=== PATIENT | male | born 1980 | race Caucasian/White ===

== ENCOUNTER 2017-06-19 08:11 | Inpatient (IN) | payer OTHER ==
[~2017-06-19] VITALS: Ht 180.3 cm; Wt 81.6 kg
--- NOTE | ~2017-06-19 | PA ---
Unit #: [id number] #: [id number] Patient: BABAK CALLAHAN [id number] [facility] [address] [place] [address] [id number] MR#: [id number] NAME: BABAK CALLAHAN ROOM: P184 Age: 37 Sex: M Admission Date: 06/19/2017 : 1980 Date of Assessment: 06/20/2017 Attending Physician: Ishaan Flood M.D. Admitting Physician: Ishaan Flood M.D. Primary Care Physician: Generic Doctor Not In System PSYCHIATRIC ASSESSMENT DATE OF SERVICE 06/20/2017. INFORMANTS The patient, reliable; OP, reliable; and [place] office, reliable. CHIEF COMPLAINT Alcoholism. HISTORY OF PRESENT ILLNESS Laden is a 37-year-old man, who reports he has been drinking since he was 19 years old. He has binge pattern drinking for 5 days in a row and reports he has been drinking for the last 3 weeks consistently. He has active withdrawal symptoms and says "this is the most scared I have been." He denied any suicidal ideation, intent, or plan, but was in a clearly decompensated state and was admitted for alcohol detox. PAST PSYCHIATRIC HISTORY The patient has previous attempts of treatment through the [facility] and the offices of [facility] Verduzco and Cruz[facility] Mack. He is not currently taking any psychiatric medications, although he has been prescribed Lexapro and Depakote in the past. FAMILY PSYCHIATRIC HISTORY He reports alcoholism on both sides of his family. His paternal grandfather attempted suicide. SOCIAL HISTORY The patient denies any history of abuse or neglect. The patient is a heterosexual man and an EPO was recently filed on him due to arguments with his spouse. He is now not allowed to return to his home. He is a college graduate with 9 hour short of a master's degree and has been unemployed since December of this year. He is currently living with his mother since his ejected them from their home. PAST MEDICAL HISTORY Significant for psoriasis. MEDICATIONS The patient uses Zyrtec p.r.n. for psoriasis itching. ALLERGIES Wellbutrin. Unit #: [id number] #: [id number] Patient: BABAK CALLAHAN SUBSTANCE ABUSE HISTORY As noted above. MENTAL STATUS EXAMINATION Desiree presented as a neatly dressed and groomed man, who appeared his stated age. He was cooperative with the examination. His speech was spontaneous and easily understood. His musculoskeletal examination was calm. His mood was anxious with a congruent affect. He was alert and fully oriented. His memory and concentration were intact. His thought processes were logical with no active psychosis. He denied suicidal ideation, intent, or plan. Insight and judgment, fair. Fund of knowledge and abstraction, fair. ASSETS AND LIABILITIES The patient knows local resources and presents voluntarily for treatment. He is employable and a college graduate. Liabilities include difficulty maintaining sobriety and recent loss of employment. ADMITTING DIAGNOSES AXIS I: Alcohol dependence with withdrawal, uncomplicated, F10.230. AXIS II: No diagnosis. AXIS III: History of psoriasis and history of asthma. AXIS IV: AXIS V: PSYCHIATRIC PLAN The patient was admitted and placed on the alcohol detox protocol. His home medications will be explored continued and a physical examination and laboratory studies will be ordered and reviewed. He will engage in dual diagnosis groups and activities. TREATMENT GOALS Resolution of intoxication, improvement in insight, and improvement in coping skills. DISCHARGE PLANNING Follow up with community health mental health. ESTIMATED LENGTH OF STAY 5 days. Dictated by... Ishaan Flood M.D. [facility]/millie TD: 06/21/2017 11:59 JOB #: [id number] Unit #: [id number] #: [id number] Patient: BABAK CALLAHAN PSYCHIATRIC ASSESSMENT Page 1 of 1 X Ishaan Flood MD X PSYCHIATRIC ASSESSMENT
--- NOTE | ~2017-06-19 | HP ---
Unit #: [id number] #: [id number] Patient: CORY CALLAHAN [id number] [place] [address] [id number] MR#: [id number] NAME: CORY CALLAHAN ROOM: P184 Age: 37 Sex: M Admission Date: 06/19/2017 : 1980 Attending Physician: Ishaan Flood M.D. Admitting Physician: Ishaan Flood M.D. Primary Care Physician: Mack Doctor Not In System HISTORY AND PHYSICAL HISTORY OF PRESENT ILLNESS Cory is a 37 year old male admitted to [facility] because of his abuse of alcohol. PAST MEDICAL HISTORY 1. Long history of alcohol abuse. 2. Psoriasis. PAST SURGICAL HISTORY Nothing reported. ALLERGIES Wellbutrin. SOCIAL HISTORY He does not smoke. Drinks at least 2 bottles of wine plus 3 or 4 shots of liquor on a daily basis. Denies illicit drug use. FAMILY HISTORY Medically noncontributory. REVIEW OF SYSTEMS CONSTITUTIONAL: No fever or chills. HEENT: Denies any sore throat, ear pain or runny nose. CARDIOVASCULAR: Denies chest pain, irregular heart rhythm or palpitations. CHEST: Denies shortness of breath or cough. No hemoptysis. GASTROINTESTINAL: Denies nausea, vomiting, diarrhea or chronic constipation. ENDOCRINE: Denies history of increased thirst or urination. No recent significant weight loss or gain. GENITOURINARY: Denies dysuria, frequency, or hematuria. SKIN: Denies any rashes. HEMATOLOGIC: Denies history of increased bleeding or bruising. MUSCULOSKELETAL: Denies any hot, swollen joints. No generalized muscle pain. NEUROLOGIC: Denies problems with vision or speech. No frequent, severe headaches. No numbness, tingling or weakness in any extremities. Denies loss of bladder or bowel control. CURRENT MEDICATIONS 1. Detox protocol. 2. Lexapro 10 mg daily. 3. Depakote ER 500 mg q.h.s. Unit #: [id number] #: [id number] Patient: CORY CALLAHAN 4. Clobetasol b.i.d. 5. Tridesilon b.i.d. PHYSICAL EXAMINATION GENERAL: Alert, well-nourished, in no apparent distress. VITAL SIGNS: Blood pressure 146/100, heart rate 82, respirations 16, temperature 98.6. WEIGHT: 180. HEIGHT: 5 feet 11 inches. SKIN: Warm and dry. He has psoriatic plaques along his scalp and lower back. HEENT: Normocephalic. TMs not viewed. Oral and nasal passages clear. Conjunctivae clear. PERRLA. EOMs intact. NECK: Supple without lymphadenopathy or thyromegaly. HEART: Regular rate and rhythm without murmur. LUNGS: Clear. ABDOMEN: Soft, nontender. : Not done. EXTREMITIES: No evidence of cyanosis, clubbing or edema. Moves all without focal deficit. NEUROLOGICAL: Grossly within normal limits. Cranial Nerves: II: Visual chavez are intact. III, IV AND : Extraocular movements are intact. Pupils are equal, round and reactive to light. V: Facial sensation is grossly normal. VII: Facial movements and expression are normal. VIII: Auditory acuity grossly intact. IX, X: Uvula is midline. Phonation is normal. XI: Patient shrugs shoulders and turns head normally. XII: Tongue protrudes in the midline. Sensory and Motor Function: Sensory and motor sensation is grossly normal. Motor: moves all extremities well. Coordination: Gait is normal. Deep Tendon Reflexes: Intact. IMPRESSION Psychiatric admission. RECOMMENDATIONS PSYCHIATRIC: Per psychiatrist. MEDICAL: See no contraindication to participate in facility's activities. MEDICAL PROGNOSIS Good. MEDICAL CONDITION Stable. Dictated by... iKki Vivas P.A.-C. for Ruddy Jovel/urszula TD: 06/19/2017 20:20 JOB #: [id number] Unit #: [id number] #: [id number] Patient: CORY CALLAHAN HISTORY AND PHYSICAL Page 1 of 1 X iKki Vivas HISTORY AND PHYSICAL
[2017-06-20 09:35] LABS: BASOPHIL% 0.6 % (0-2.5); EOSINOPHIL# 0.1 X10e3 (0-0.7); EOSINOPHIL% 1.5 % (0.0-7.0); HEMATOCRIT 38.4 % (38.0-50.0); HEMOGLOBIN 12.6 gm/dL (13.0-16.0); LYMPHOCYTE# 2.3 X10e3 (1.0-3.5); LYMPHOCYTE% 54.9 % (17.0-45.0); MEAN CELL VOLUME 79.6 FL (83-96); MEAN CORPUSCULAR HEMOGLOBIN 26.1 PG (28-34); MEAN CORPUSCULAR HGB CONC 32.8 g/dL (30-36); MEAN PLATELET VOLUME 7.7 FL (6.5-11.5); MONOCYTE# 0.3 X10e3 (0-1.0); MONOCYTE% 7.2 % (3.0-12.0); NEUTROPHIL# 1.5 X10e3 (1.5-7.1); NEUTROPHIL% 35.8 % (40-75); PLATELET COUNT 102 X10e3 (140-420); RED BLOOD COUNT 4.82 X10e (3.90-5.60); RED CELL DISTRIBUTION WIDTH 14.5 % (11.0-15.5); WHITE BLOOD COUNT 4.1 X10e3 (4.0-10.5)
[2017-06-20 09:43] LABS: DIFF IND YES
[2017-06-20 09:45] LABS: ALBUMIN SERUM 3.9 g/dL (3.5-5.0); BILIRUBIN,TOTAL 1.6 mg/dL (0.2-2.0); BUN/CREATININE RATIO 18.75; CALCIUM SERUM 8.8 mg/dL (8.4-10.2); CREATININE SERUM 0.8 mg/dL (0.6-1.4); POTASSIUM 4.1 mmol/L (3.5-5.1); PROTEIN TOTAL SERUM 6.6 g/dL (6.0-8.3)
[2017-06-20 09:49] LABS: PLATELET ESTIMATE DECREASED (NORMAL)
[2017-06-20 09:50] LABS: ANISOCYTOSIS SL; HYPOCHROMIA SL; MICROCYTOSIS SL
== END 2017-06-22 16:30 | DRG 897 ==
LOC: P1E 12:21
PROVIDERS: Psychiatry & Neurology Psychiatry
PROC: HZ2ZZZZ Detoxification Services for Substance Abuse Treatment (ICD-10-PCS; principal; 2017-06-19)
DX: F10.239 Alcohol dependence with withdrawal, unspecified (principal); L40.9 Psoriasis, unspecified
CPT/HCPCS: 80053; 85025; 86592